=== PATIENT | female | born 1945 | race Caucasian/White ===

== ENCOUNTER 2016-06-04 16:59 | Emergency (ER) | payer BC, OTHER ==
[~2016-06-04] VITALS: Ht 162.6 cm; Wt 86.2 kg
[2016-06-04] MEDS ORDERED: NACL 0.9% 1,000 ML IV SCH (17:02)
[2016-06-04 17:15] VITALS: BP 129/62; PULSE 75; RESP 16; TEMP 97.5; O2SAT 96
[2016-06-04 17:32] LABS: ANION GAP 5 (5-15); CALCIUM 10.2 mg/dL (8.4-11.0); CHLORIDE 99 mmol/L (98-107); CREATININE 0.67 mg/dL (0.55-1.30); GLUCOSE 120 mg/dL (70-99); POTASSIUM 4.6 mmol/L (3.5-5.1); SODIUM SERUM 132 mmol/L (136-145); UREA NITROGEN, BLOOD 17 mg/dL (8-21)
[2016-06-04 17:34] LABS: BASOPHILS # (AUTO) 0.1 K/uL (0.0-0.2); BASOPHILS % (AUTO) 0.7 % (0.0-2.0); EOSINOPHILS # (AUTO) 0.4 K/uL (0.0-0.4); EOSINOPHILS % (AUTO) 4.1 % (0.0-4.0); HEMATOCRIT 36.3 % (36-48); HEMOGLOBIN 12.6 g/dL (12.0-16.0); LYMPHOCYTES # (AUTO) 2.1 K/uL (1.0-5.5); LYMPHOCYTES % (AUTO) 22.8 % (20.5-51.5); MEAN CORPUSCULAR HEMOGLOBIN 30 pg (27-31); MEAN CORPUSCULAR HGB CONC 35 % (32-36); MEAN CORPUSCULAR VOLUME 85 fL (79.0-98.0); MONOCYTES # (AUTO) 0.5 K/uL (0.0-1.0); MONOCYTES % (AUTO) 5.4 % (1.7-9.3); PLATELET COUNT (AUTO) 323 K/uL (130-430); RED BLOOD CELL COUNT(AUTO) 4.26 MIL/uL (4.2-6.2); RED CELL DISTRIBUTION WIDTH 12.8 % (9.0-15.0); WHITE BLOOD COUNT (AUTO) 9.1 K/uL (4.8-10.8)
[2016-06-04 17:36] LABS: PROTHROMBIN TIME 11.1 SECS (9.5-12.5)
[2016-06-04 17:37] LABS: ALANINE AMINOTRANSFERASE 25 U/L (12-78); ALBUMIN 3.8 g/dL (3.4-4.8); ASPARTATE AMINOTRANSFERASE 11 U/L (10-37); TOTAL BILIRUBIN 0.4 mg/dL (0.0-1.0); TOTAL PROTEIN, SERUM 7.4 g/dL (6.4-8.3)
[2016-06-04 21:45] VITALS: BP 129/62; PULSE 75; RESP 16; TEMP 97.5; O2SAT 96
== END 2016-06-04 21:45 | disposition home or self-care (01) ==
LOC: SED 16:59
DX: K64.4 Residual hemorrhoidal skin tags (principal); R03.0 Elevated blood-pressure reading, without diagnosis of hypertension; J45.909 Unspecified asthma, uncomplicated; Z90.49 Acquired absence of other specified parts of digestive tract; Z90.710 Acquired absence of both cervix and uterus; Z98.890 Other specified postprocedural states
CPT/HCPCS: 36415; 71010; 80053; 85025; 85610; 85730; 86886; 86900; 86901; 93005; 96360; 99285; J7030